=== PATIENT | male | born 1970 | race African-American/Black ===

== ENCOUNTER → 2018-04-23 | Outpatient (CLI) | payer OTHER ==
[~2018-04-23] MED LIST: ACHD5005 PO; CEPH500C PO; CPR500T PO; HYDR1TAB8 OP
--- NOTE | 2018-04-23 09:49 | Diagnostic Imaging Report ---
PROCEDURE: MRI right joint lower extremity without contrast. TECHNIQUE: Multiplanar, multisequence non contrast-enhanced MRI of the right lower extremity was accomplished. INDICATION: Right knee pain anteriorly. COMPARISON: None. FINDINGS: Anterior and posterior cruciate ligaments are intact. Mild increased T2 signal in the posterior horn of the medial meniscus consistent with intrasubstance degeneration. No meniscal tears. The medial and lateral collateral ligaments are intact. The extensor mechanism and patellar retinaculum are normal. Focal subchondral edema within the trochlear groove. No other chondromalacia. Bone marrow signal is otherwise unremarkable. No popliteal cyst. No effusion. The visualized neurovascular and muscular structures are unremarkable. IMPRESSION: 1. Focal subchondral edema in the trochlear groove. No other substantial chondromalacia. Bone marrow signal is otherwise unremarkable. 2. 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 No meniscal tears. Dictated by: Dictated on workstation # [id number]
== END ==
LOC: RAD 08:10
PROVIDERS: ATTEND Family Medicine
DX: M17.11 Unilateral primary osteoarthritis, right knee (principal)
CPT/HCPCS: 73721